=== PATIENT | male | born 1985 | race Caucasian/White ===

== ENCOUNTER 2016-12-10 05:06 | Emergency (ER) | payer OTHER ==
[~2016-12-10 05:06] MED LIST: COL100 PO; COLACE100 MG PO; HYDROCOT25 M1 PO; NOR10T PO; PERCOCET1 TA2 PO; PREVACID SOLUTA15 MG PO; PRI20 PO; VASOTEC20 MG PO; ZANTAC 300300 MG PO; ZOF4 PO
[2016-12-10 05:50] LABS: BASOPHIL % 0.1 % (0-2); PLATELET COUNT 321 x10^3mcL (130-400)
[2016-12-10 06:01] LABS: CALCIUM 9.1 mg/dL (8.5-10.1); CARBON DIOXIDE 22.9 mmol/L (21-32); CHLORIDE SERUM 103 mmol/L (98-107); GFR1 > 60 mL/min; GLUCOSE SERUM 114 mg/dL (74-106); POTASSIUM SERUM 3.6 mmol/L (3.5-5.1); SODIUM SERUM 141 mmol/L (136-145)
[2016-12-10 06:08] LABS: ALBUMIN 4.7 g/dL (3.4-5.0); ALKALINE PHOSPHATASE 51 U/L (46-116); ALT/SGPT 37 U/L (16-63); AMYLASE 41 U/L (25-115); AST/SGOT 18 U/L (15-37); BILIRUBIN TOTAL 1.2 mg/dL (0.20-1.00); LIPASE 103 IU/L (73-393)
[2016-12-10 07:29] VITALS: BP 139/74
== END 2016-12-10 07:29 | disposition home or self-care (01) ==
LOC: ED 05:06
PROVIDERS: Emergency Medicine
DX: R11.2 Nausea with vomiting, unspecified (principal); R42 Dizziness and giddiness; F41.9 Anxiety disorder, unspecified; I10 Essential (primary) hypertension; R10.9 Unspecified abdominal pain
CPT/HCPCS: J2405; J3010; Q0092

== ENCOUNTER 2017-01-11 09:34 | Emergency (ER) | payer OTHER ==
[2017-01-11 10:35] LABS: BASOPHIL % 0.3 % (0-2); PLATELET COUNT 355 x10^3mcL (130-400); RED CELL DISTRIBUTION WIDTH 12.6 % (11.5-14.5)
[2017-01-11 10:41] LABS: CALCIUM 9.3 mg/dL (8.5-10.1); CARBON DIOXIDE 25.8 mmol/L (21-32); CHLORIDE SERUM 103 mmol/L (98-107); CREATININE SERUM 1.1 mg/dL (0.7-1.3); GFR1 > 60 mL/min; GLUCOSE SERUM 117 mg/dL (74-106); POTASSIUM SERUM 3.8 mmol/L (3.5-5.1); SODIUM SERUM 143 mmol/L (136-145)
[2017-01-11 10:45] LABS: ALBUMIN 4.7 g/dL (3.4-5.0); ALKALINE PHOSPHATASE 61 U/L (46-116); ALT/SGPT 47 U/L (16-63); AST/SGOT 16 U/L (15-37); BILIRUBIN TOTAL 0.8 mg/dL (0.20-1.00); MAGNESIUM 1.5 mg/dL (1.8-2.4); TOTAL PROTEIN, SERUM 7.9 g/dL (6.4-8.2)
[2017-01-11 11:43] VITALS: BP 123/79
== END 2017-01-11 11:43 | disposition home or self-care (01) ==
LOC: ED 09:34
PROVIDERS: Emergency Medicine
DX: H81.311 Aural vertigo, right ear (principal); F41.9 Anxiety disorder, unspecified; I10 Essential (primary) hypertension; F41.0 Panic disorder [episodic paroxysmal anxiety]; K20.9 Esophagitis, unspecified
CPT/HCPCS: J2270; J2405; J7030; J8597

== ENCOUNTER 2018-06-23 12:06 | Emergency (ER) | payer OTHER ==
[2018-06-23 12:42] VITALS: BP 146/82; Ht 175.3 cm
== END 2018-06-23 13:46 | disposition left against medical advice (07) ==
LOC: ED 12:06
DX: Z53.21 Procedure and treatment not carried out due to patient leaving prior to being seen by health care provider (principal)